=== PATIENT | female | born 1990 | race Two or more races ===

== ENCOUNTER 2024-05-21 21:16 | Emergency (ER) | payer OTHER ==
[~2024-05-21] VITALS: Ht 175.3 cm; Wt 133.8 kg
[2024-05-21 22:27] VITALS: TEMP 98.5
--- NOTE | 2024-05-21 22:30 | NUR ---
R CALF PAIN FOR A FEW HOURS. PT ALERT AND ORIENTED. RR EVEN AND NON LABORED. AMBULATORY W/ STEADY GAIT
--- NOTE | 2024-05-21 23:28 | NUR ---
Patient discharged to home in stable condition. Written and verbal after care instructions given. Patient verbalizes understanding of instruction.
[2024-05-21 23:33] VITALS: BP 148/72; O2SAT 100
== END 2024-05-21 23:34 | disposition home or self-care (01) ==
LOC: ER 21:19
DX: S86.811A Strain of other muscle(s) and tendon(s) at lower leg level, right leg, initial encounter (principal); E03.9 Hypothyroidism, unspecified; X58.XXXA Exposure to other specified factors, initial encounter; Y93.89 Activity, other specified; Y92.89 Other specified places as the place of occurrence of the external cause; Y99.8 Other external cause status
CPT/HCPCS: 93971-TC

== ENCOUNTER 2024-09-30 17:47 | Emergency (ER) | payer OTHER ==
[~2024-09-30] VITALS: Ht 175.3 cm; Wt 131.5 kg
[2024-09-30 22:53] LABS: BASOPHILS % (AUTO) 0.5 % (0.0-2.0); EOSINOPHILS # (AUTO) 0.1 K/uL (0.0-0.7); HEMATOCRIT 37 % (33-45); HEMOGLOBIN 12.1 g/dL (11.5-14.8); LYMPHOCYTES # (AUTO) 2.6 K/uL (0.8-4.8); LYMPHOCYTES % (AUTO) 25.2 % (20.0-44.0); MEAN CORPUSCULAR HEMOGLOBIN 26 PG (26.0-33.0); MEAN CORPUSCULAR HGB CONC 33 g/dl (31.0-36.0); MEAN CORPUSCULAR VOLUME 79 fL (82-100); MONOCYTES # (AUTO) 0.6 K/uL (0.1-1.30); MONOCYTES % (AUTO) 5.5 % (2.0-12.0); NEUTROPHILS % (AUTO) 67.8 % (43.0-81.0); PLATELET COUNT (AUTO) 251 K/uL (150-450); RED BLOOD CELL COUNT(AUTO) 4.67 MIL/uL (4.0-5.2); RED CELL DISTRIBUTION WIDTH 15.5 % (11.5-15.0); WHITE BLOOD COUNT (AUTO) 10.4 K/uL (4.3-11.0)
[2024-09-30 23:11] LABS: ALBUMIN 3.3 g/dL (3.4-5.0); BILIRUBIN,TOTAL 0.6 mg/dL (0.2-1.0); CALCIUM, SERUM 9.6 mg/dL (8.5-10.1); CREATININE 0.5 mg/dL (0.6-1.3)
[2024-09-30 23:19] LABS: THYROID STIMULATING HORMONE 0.01 uIU/mL (0.358-3.74)
[2024-09-30 23:44] LABS: APPEARANCE,URINE CLEAR (CLEAR); BILIRUBIN,URINE NEGATIVE (NEGATIVE); BLOOD, URINE NEGATIVE Ery/uL (NEGATIVE); COLOR,URINE YELLOW (YELLOW); KETONES,URINE TRACE mg/dL (NEGATIVE); LEUKOCYTE ESTERASE ,URINE NEGATIVE (NEGATIVE); NITRITE, URINE NEGATIVE (NEGATIVE); PH,URINE 5.5 (5.0-8.0); PREGNANCY TEST URINE QUAL NEGATIVE (NEGATIVE); PROTEIN,URINE NEGATIVE (NEGATIVE); UGLUCOSE NEGATIVE (NEGATIVE); UROBILINOGEN,URINE 0.2 EU/dL (0.2)
[2024-09-30 23:51] VITALS: TEMP 98.2
[2024-10-01 00:06] LABS: AMPHETAMINE, URINE NEGATIVE (NEGATIVE); BARBITURATE, URINE NEGATIVE (NEGATIVE); BENZODIAZEPINE, URINE NEGATIVE (NEGATIVE); CANNABINOID, URINE NEGATIVE (NEGATIVE); COCCAINE, URINE NEGATIVE (NEGATIVE); OPIATE, URINE NEGATIVE (NEGATIVE); PHENCYCLIDINE SCREEN,URINE NEGATIVE (NEGATIVE)
[2024-10-01 00:26] LABS: ADD URINE CULTURE NO; BACTERIA,URINE Rare /HPF (None Seen); RBC,URINE 0-2 /HPF (0-2); SQUAMOUS EPITHELIAL CELL,UR Few /HPF (None Seen); WBC,URINE 0-2 /HPF (0-3)
[2024-10-01 01:34] VITALS: BP 152/93; O2SAT 96
== END 2024-10-01 01:35 | disposition home or self-care (01) ==
LOC: ER 17:51
DX: R42 Dizziness and giddiness (principal); E05.90 Thyrotoxicosis, unspecified without thyrotoxic crisis or storm; E11.9 Type 2 diabetes mellitus without complications
CPT/HCPCS: 36415; 70450-TC; 80053-TC; 81001; 84443-TC; 84703-TC; 85025-TC

== ENCOUNTER 2025-02-08 08:48 | Emergency (ER) | payer OTHER ==
[~2025-02-08] VITALS: Ht 175.3 cm; Wt 129.3 kg
[2025-02-08] MEDS ORDERED: MAG HYDROX/AL HYDROX/SIMETH 30 ML UDC ONE (09:22)
[2025-02-08] MEDS ORDERED: LIDOCAINE VISCOUS 2% UD 15 ML UDC ONE (09:22)
[2025-02-08] MEDS ORDERED: FAMOTIDINE (20 MG) 20 MG TABLET ONE (09:23)
[2025-02-08] MEDS ORDERED: DICYCLOMINE HCL 10 MG CAPSULE PO ONE (09:23)
[2025-02-08] MEDS: LIDOCAINE VISCOUS 2% UD 15 ML UDC MM ONE (09:28)
[2025-02-08] MEDS: MAG HYDROX/AL HYDROX/SIMETH 30 ML UDC PO ONE (09:28)
[2025-02-08] MEDS: FAMOTIDINE (20 MG) 20 MG TABLET PO ONE (09:28)
[2025-02-08] MEDS: DICYCLOMINE HCL 10 MG CAPSULE PO ONE (09:28)
[2025-02-08] MEDS ORDERED: FAMOTIDINE/PF INJ 20 MG/2 ML VIAL IV ONE (09:30)
[2025-02-08] MEDS ORDERED: PANTOPRAZOLE 40 MG VIAL IV ONE (09:30)
[2025-02-08] MEDS ORDERED: IV NS 0.9% 1,000 ML BAG IV ONE (09:30)
[2025-02-08 09:36] LABS: BASOPHILS % (AUTO) 0.4 % (0.0-2.0); EOSINOPHILS # (AUTO) 0.1 K/uL (0.0-0.7); EOSINOPHILS % (AUTO) 1.4 % (0.0-6.0); HEMATOCRIT 34 % (33-45); HEMOGLOBIN 10.9 g/dL (11.5-14.8); LYMPHOCYTES # (AUTO) 2.7 K/uL (0.8-4.8); LYMPHOCYTES % (AUTO) 27.5 % (20.0-44.0); MEAN CORPUSCULAR HEMOGLOBIN 25 PG (26.0-33.0); MEAN CORPUSCULAR HGB CONC 32 g/dl (31.0-36.0); MEAN CORPUSCULAR VOLUME 76 fL (82-100); MONOCYTES # (AUTO) 0.7 K/uL (0.1-1.30); MONOCYTES % (AUTO) 6.7 % (2.0-12.0); NEUTROPHILS # (AUTO) 6.2 K/uL (1.8-8.9); PLATELET COUNT (AUTO) 255 K/uL (150-450); RED BLOOD CELL COUNT(AUTO) 4.43 MIL/uL (4.0-5.2); RED CELL DISTRIBUTION WIDTH 17.2 % (11.5-15.0); WHITE BLOOD COUNT (AUTO) 9.7 K/uL (4.3-11.0)
[2025-02-08 09:42] LABS: APPEARANCE,URINE CLEAR (CLEAR); BILIRUBIN,URINE NEGATIVE (NEGATIVE); BLOOD, URINE NEGATIVE Ery/uL (NEGATIVE); COLOR,URINE YELLOW (YELLOW); KETONES,URINE NEGATIVE (NEGATIVE); LEUKOCYTE ESTERASE ,URINE TRACE (NEGATIVE); NITRITE, URINE NEGATIVE (NEGATIVE); PROTEIN,URINE NEGATIVE (NEGATIVE); UGLUCOSE NEGATIVE (NEGATIVE)
[2025-02-08 09:43] LABS: PREGNANCY TEST URINE QUAL NEGATIVE (NEGATIVE)
[2025-02-08 09:45] LABS: CALCIUM, SERUM 9.1 mg/dL (8.5-10.1); CREATININE 0.5 mg/dL (0.6-1.3); POTASSIUM 4.2 mmol/L (3.5-5.1)
[2025-02-08 09:47] LABS: RBC,URINE 0-2 /HPF (0-2)
[2025-02-08 09:48] LABS: ADD URINE CULTURE NO; BACTERIA,URINE Few /HPF (None Seen); MUCUS,URINE Few /LPF (None Seen)
[2025-02-08 09:52] LABS: ALBUMIN 3.2 g/dL (3.4-5.0); BILIRUBIN,DIRECT 0.2 mg/dL (0.0-0.2); BILIRUBIN,TOTAL 0.9 mg/dL (0.2-1.0); TOTAL PROTEIN, SERUM 7.1 g/dL (6.4-8.2)
[2025-02-08] MEDS ORDERED: FAMO-131 PO (10:13)
[2025-02-08] MEDS ORDERED: DICY10CA37 PO (10:13)
[2025-02-08] MEDS ORDERED: OMEP20CA15 PO (10:14)
[2025-02-08 10:20] VITALS: BP 134/79; TEMP 98.3; O2SAT 100
== END 2025-02-08 10:21 | disposition home or self-care (01) ==
LOC: ER 08:48
DX: K21.9 Gastro-esophageal reflux disease without esophagitis (principal); R10.12 Left upper quadrant pain; E11.9 Type 2 diabetes mellitus without complications; R11.2 Nausea with vomiting, unspecified
CPT/HCPCS: 36415; 76705-TC; 80048-TC; 80076-TC; 81001; 83690-TC; 84703-TC; 85025-TC

== ENCOUNTER 2025-04-25 08:29 | Emergency (ER) | payer OTHER ==
[~2025-04-25] VITALS: Ht 175.3 cm; Wt 131.5 kg
[~2025-04-25 08:29] MED LIST: DICY10CA37 PO; FAMO-131 PO; OMEP20CA15 PO
[2025-04-25 09:04] LABS: PLATELET COUNT (AUTO) 258 K/uL (150-450); RED BLOOD CELL COUNT(AUTO) 4.58 MIL/uL (4.0-5.2); RED CELL DISTRIBUTION WIDTH 17.1 % (11.5-15.0); WHITE BLOOD COUNT (AUTO) 10.1 K/uL (4.3-11.0)
[2025-04-25 09:15] LABS: CALCIUM, SERUM 8.5 mg/dL (8.5-10.1); CREATININE 0.7 mg/dL (0.6-1.3); SODIUM SERUM 138 mmol/L (136-145); UREA NITROGEN, BLOOD 9 mg/dL (7-18)
[2025-04-25 09:25] LABS: NT-PRO BNP 21 pg/mL (0-125)
[2025-04-25] MEDS ORDERED: LIDOCAINE VISCOUS 2% UD 15 ML UDC ONE (09:25)
[2025-04-25] MEDS ORDERED: MAG HYDROX/AL HYDROX/SIMETH 30 ML UDC ONE (09:25)
[2025-04-25] MEDS ORDERED: FAMOTIDINE (20 MG) 20 MG TABLET ONE (09:25)
[2025-04-25] MEDS ORDERED: PANTOPRAZOLE 40 MG TABLET.DR PO ONE (09:26)
[2025-04-25] MEDS: LIDOCAINE VISCOUS 2% UD 15 ML UDC MM ONE (09:27)
[2025-04-25] MEDS: MAG HYDROX/AL HYDROX/SIMETH 30 ML UDC PO ONE (09:28)
[2025-04-25] MEDS ORDERED: PANTOPRAZOLE 40 MG VIAL IV ONE (09:30)
[2025-04-25] MEDS ORDERED: FAMOTIDINE/PF INJ 20 MG/2 ML VIAL IV ONE (09:30)
[2025-04-25] MEDS ORDERED: KETOROLAC TROMETHAMINE 15 MG/ML VIAL IV ONE (09:30)
[2025-04-25] MEDS: FAMOTIDINE (20 MG) 20 MG TABLET PO ONE (09:32)
[2025-04-25] MEDS: PANTOPRAZOLE 40 MG/PACK PACK PO ONE (09:33)
[2025-04-25 12:25] VITALS: BP 136/78; TEMP 98.3; O2SAT 100
== END 2025-04-25 12:26 | disposition home or self-care (01) ==
LOC: ER 08:29
DX: R07.9 Chest pain, unspecified (principal); R06.02 Shortness of breath; R10.13 Epigastric pain; E11.9 Type 2 diabetes mellitus without complications; E66.01 Morbid (severe) obesity due to excess calories; Z79.899 Other long term (current) drug therapy; Z68.41 Body mass index [BMI] 40.0-44.9, adult
CPT/HCPCS: 36415; 71045-TC; 80048-TC; 83880; 84439-TC; 84443-TC; 84481; 84484-TC; 85025-TC; 85378-TC